=== PATIENT | male | born 1990 | race Caucasian/White ===

== ENCOUNTER 2019-09-07 07:25 | Emergency (ER) | payer BC ==
[~2019-09-07] VITALS: Ht 172.7 cm; Wt 137.9 kg
[2019-09-07 07:32] VITALS: BP 134/86; Ht 172.7 cm; Wt 137.9 kg
== END 2019-09-07 07:50 | disposition home or self-care (01) ==
LOC: ED 07:25
DX: R06.02 Shortness of breath (principal); Z13.9 Encounter for screening, unspecified